=== PATIENT | female | born 1945 | race Caucasian/White ===

== ENCOUNTER 2022-09-03 10:46 | Emergency (ER) | payer MEDICARE, OTHER, SELFPAY ==
[2022-09-03 11:01] VITALS: BP 135/82; PULSE 104; RESP 15; TEMP 37.2; O2SAT 98; BMI 15.9
--- NOTE | 2022-09-03 11:05 | DI.RAD.S_ITS ---
PROCEDURE: XR ANKLE LT MIN 3V INDICATIONS: ankle swelling TECHNIQUE: 3 views of the ankle were acquired. COMPARISON: None. FINDINGS: Bones: No fractures or dislocations. Ankle mortise is normally aligned. No suspicious bony lesions. Soft tissues: No tibiotalar joint effusion. Achilles tendon appears normal. IMPRESSION: No evidence acute bony abnormality. If clinical suspicion and/or symptoms persist, further assessment with repeat plain films, or advanced imaging (e.g., CT, MRI, or bone scan) may be helpful for further assessment. Dictated by: Ye March M.D. on 09/03/2022 at 11:39 Approved by: Ye March M.D. on 09/03/2022 at 11:40
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
[2022-09-03 13:00] VITALS: BP 138/74; PULSE 83; O2SAT 97
== END 2022-09-03 13:06 | disposition home or self-care (01) ==
PROVIDERS: Emergency Provider Physician Assistant Medical; PCP Nurse Practitioner
DX: M25.472 Effusion, left ankle (principal)
CPT/HCPCS: 73610; 99281; 99283